=== PATIENT | male | born 1990 | race American Indian/Alaskan Native ===

== ENCOUNTER 2018-11-28 09:28 | Emergency (ER) | payer SELFPAY ==
[2018-11-28] MEDS ORDERED: ATROVENT IH ONE (11:06)
[2018-11-28] MEDS ORDERED: PROVENTIL IH ONE (11:06)
[2018-11-28] MEDS ORDERED: TORADOL IV ONE (11:07)
--- NOTE | 2018-11-28 11:20 | Emergency Department Report ---
HPI - General Chief Complaint: Adult Asthma Time Seen by Provider: 11/28/18 11:01 - HPI HPI: Room 4 The patient is a 20-year-old male presenting with a chief complaint of chest pain. Patient states this morning while driving to work 06:0 developed pain in his left chest described as pressure that was pleuritic in nature. Patient states he felt short of breath but denies nausea/vomiting or fever. Patient denies cough or recent flights/long car trips. Patient currently gives his pain score of 6/10. Patient denies family history of premature cardiac disease or sudden Location: [See above] Duration: [See above] Quality: [See above] Severity: [See above] Modifying factors: [see above] Context: [see above] Mode of transportation: [not driving] ED Past Medical Hx - Past Medical History Hx Asthma: Yes - Surgical History Past Surgical History?: No - Family History Family history: no significant - Social History Smoking Status: Never Smoker Substance Use Type: None (denies illicit drug use) - Medications Home Medications: Home Medications Medication Instructions Recorded Confirmed Last Taken Type ALBUTEROL Inhaler (OR & NICU) 2 puff IH QID PRN #1 inhalation 11/28/18 Unknown Rx [Proair] Ibuprofen [Motrin 800 MG tab] 800 mg PO Q8HR PRN #20 tablet 11/28/18 Unknown Rx ED Review of Systems ROS: Stated complaint: SOB Other details as noted in HPI Constitutional: denies: fever Eyes: denies: eye pain ENT: denies: throat pain Respiratory: shortness of breath Cardiovascular: chest pain Endocrine: no symptoms reported Gastrointestinal: denies: nausea, vomiting Genitourinary: denies: dysuria Musculoskeletal: denies: back pain Neurological: denies: headache Physical Exam - Physical Exam Vital Signs: Vital Signs 11/28/18 11/28/18 11/28/18 09:38 11:03 11:09 Temperature 98.0 F 98.9 F Pulse Rate 69 67 Respiratory 20 13 Rate Blood Pressure 107/50 O2 Sat by Pulse 100 100 Oximetry Physical Exam: GENERAL: The patient is well-developed well-nourished male lying on stretcher not appearing to be in acute distress. [] HEENT: Normocephalic. Atraumatic. Extraocular motions are intact. Patient has moist mucous membranes. NECK: Supple. Trachea midline CHEST/LUNGS: Clear to auscultation. There is no respiratory distress noted. HEART/CARDIOVASCULAR: Regular. There is no tachycardia. There is no gallop rub or murmur. ABDOMEN: Abdomen is soft, nontender. Patient has normal bowel sounds. There is no abdominal distention. SKIN: There is no rash. There is no edema. There is no diaphoresis. NEURO: The patient is awake, alert, and oriented. The patient is cooperative. The patient has normal speech MUSCULOSKELETAL: There is no evidence of acute injury. ED Course Vital Signs 11/28/18 11/28/18 11/28/18 09:38 11:03 11:09 Temperature 98.0 F 98.9 F Pulse Rate 69 67 Respiratory 20 13 Rate Blood Pressure 107/50 O2 Sat by Pulse 100 100 Oximetry - Reevaluation(s) Reevaluation #1: 11/28/18 13:52 Patient states he feels improved ED Medical Decision Making - Lab Data Result diagrams: 11/28/18 11:10 11/28/18 11:10 Laboratory Tests 11/28/18 11/28/18 11/28/18 11:10 11:10 11:10 WBC 6.3 RBC 5.06 H Hgb 14.3 Hct 44.0 MCV 87 MCH 28 MCHC 33 RDW 13.4 Plt Count 248 Lymph % (Auto) 29.7 [place] % (Auto) 11.9 H Eos % (Auto) 4.2 Baso % (Auto) 0.9 Lymph # 1.9 [place] # 0.7 Eos # 0.3 Baso # 0.1 Seg Neutrophils % 53.3 Seg Neutrophils # 3.4 D-Dimer < 135.00 Sodium 136 L Potassium 4.8 Chloride 100.3 Carbon Dioxide 31 H Anion Gap 10 BUN 15 Creatinine 0.8 Estimated GFR > 60 BUN/Creatinine Ratio 19 Glucose 103 H Calcium 9.2 Total Creatine Kinase 155 CK-MB (CK-2) < 1.0 CK-MB (CK-2) Rel Index 0.6 Troponin T < 0.010 NT-Pro-B Natriuret Pep 14.67 - EKG Data -: EKG Interpreted by Fl EKG shows normal: sinus rhythm Rate: normal - EKG Data When compared to previous EKG there are: previous EKG unavailable Interpretation: other (no ischemic changes seen) - Radiology Data Radiology results: report reviewed (chest x-ray), image reviewed (chest x-ray) interpreted by me: Chest x-ray-no focal infiltrates, no pneumothorax [facility] [address] [place] [address] XRay Report Signed Patient: AGUSTÍN VEGA MR#: [id number] : 1990 Acct:[id number] Age/Sex: 28 / M ADM Date: 11/28/18 Loc: ED Attending Dr: Ordering Physician: CLAUDIO GONZALES MD Date of Service: 11/28/18 Procedure(s): XR chest routine 2V Accession Number(s): [id number] cc: CLAUDIO GONZALES MD Fluoro Time In Minutes: CHEST 2 VIEWS INDICATION: chest pain. COMPARISON: None. FINDINGS: Support devices: None. Heart: Within normal limits. Lungs/Pleura: No acute air space or interstitial disease. No significant pleural effusion. IMPRESSION: No acute findings. Signer Name: Lincoln Plata MD Signed: 11/28/2018 12:59 PM Workstation Name: [id number] Transcribed By: ES Dictated By: Lincoln Plata MD Electronically Authenticated By: Lincoln Plata MD Signed Date/Time: 11/28/18 125 DD/ 58 TD/TT: - Differential Diagnosis asthma exacerbation, PE, ACS, pericarditis, GERD Critical care attestation.: If time is entered above; I have spent that time in minutes in the direct care of this critically ill patient, excluding procedure time. ED Disposition Clinical Impression: Atypical chest pain Disposition: DC-01 TO HOME OR SELFCARE Is pt being admited?: No Does the pt Need Aspirin: No Condition: Stable Instructions: Chest Pain (ED), Costochondritis (ED) Additional Instructions: Return to the emergency department immediately should you develop worsening symptoms, fever, inability to tolerate food or liquid or any other concerns. Prescriptions: Ibuprofen [Motrin 800 MG tab] 800 mg PO Q8HR PRN #20 tablet PRN Reason: Pain, Moderate (4-6) ALBUTEROL Inhaler (OR & NICU) [Proair] 2 puff IH QID PRN #1 inhalation PRN Reason: Shortness Of Breath Referrals: PRIMARY CARE, [Referring] - 3-5 Days Time of Disposition: 13:54
[2018-11-28 11:31] LABS: Basophils # (Auto) 0.1 K/mm3 (0.0-0.1); Basophils % (Auto) 0.9 % (0.0-1.8); Eosinophils # (Auto) 0.3 K/mm3 (0.0-0.4); Eosinophils % (Auto) 4.2 % (0.0-4.3); Hemoglobin 14.3 gm/dl (11.8-15.2); Lymphocytes # (Auto) 1.9 K/mm3 (1.2-5.4); Lymphocytes % (Auto) 29.7 % (13.4-35.0); Mean Corpuscular HGB Conc 33 % (32-34); Mean Corpuscular Volume 87 fl (84-94); Monocytes # (Auto) 0.7 K/mm3 (0.0-0.8); Monocytes % (Auto) 11.9 % (0.0-7.3); Platelet Count 248 K/mm3 (140-440); Red Blood Count 5.06 M/mm3 (3.65-5.03); Red Cell Distribution Width 13.4 % (13.2-15.2)
[2018-11-28 11:52] LABS: BUN/Creatinine Ratio 19; Blood Urea Nitrogen 15 mg/dL (9-20); Calcium 9.2 mg/dL (8.4-10.2); Creatine Kinase MB < 1.0 ng/mL (0.0-4.0); Hemolysis Index 3
--- NOTE | 2018-11-28 13:03 | XRay Report ---
CHEST 2 VIEWS INDICATION: chest pain. COMPARISON: None. FINDINGS: Support devices: None. Heart: Within normal limits. Lungs/Pleura: No acute air space or interstitial disease. No significant pleural effusion. IMPRESSION: No acute findings. Signer Name: Lincoln Plata MD Signed: 11/28/2018 12:59 PM Workstation Name: [id number]
[2018-11-28 14:37] VITALS: BP 96/53
== END 2018-11-28 14:36 | disposition home or self-care (01) ==
LOC: ED 09:28
DX: R07.89 Other chest pain (principal); R06.02 Shortness of breath
CPT/HCPCS: 36415; 71046; 80048; 82550; 82553; 83880; 84484; 85025; 85379; 93005; 93010; 96374; 99284; J1885